=== PATIENT | male | born 1985 | race Caucasian/White ===

== ENCOUNTER 2019-03-25 18:14 | Emergency (ER) | payer BC ==
[2019-03-25] MEDS ORDERED: Albuterol/Ipratropium 3.0-0.5 MG/3 ML Neb Soln NEB ONE (19:01)
[2019-03-25] MEDS ORDERED: methylPREDNISolone Sodium Succinate 125 MG/2 ML SDV IM ONE (19:01)
--- NOTE | 2019-03-25 19:03 | EDM.PDOC ---
<Phyllis Kulkarni - Last Filed: 03/25/19 23:14> ED HPI GENERAL MEDICAL PROBLEM - General Chief Complaint: General Stated Complaint: PT HAS FLU SYMPTOMS Time Seen by Provider: 03/25/19 18:24 Source of Information: Reports: Patient History Limitations: Reports: No Limitations - History of Present Illness INITIAL COMMENTS - FREE TEXT/NARRATIVE: HISTORY AND PHYSICAL: History of present illness: Patient is a 33-year-old male presents to the ED today for concern of cough and chills 4 days. Patient states he does not have any health history and thought that the cough go away. Patient states that he started feeling like he had chills but states he has not had a fever. Patient states he has been taking over -the-counter cold medication for his symptoms. Patient denies any other symptoms or concerns at this time. Patient states he does not smoke or use any substances. Patient denies fever, chest pain, shortness of breath. Denies headache, neck stiff ness, change in vision, syncope, or near syncope. Denies nausea, vomiting , abdominal pain, diarrhea, constipation, or dysuria. Has not noted any blood in urine or stool. Patient has been eating and drinking appropriately. Review of systems: As per history of present illness and below otherwise all systems reviewed and negative. Past medical history: As per history of present illness and as reviewed below otherwise noncontributory. Surgical history: As per history of present illness and as reviewed below otherwise noncontributory. Social history: See social history for further information Family history: As per history of present illness and as reviewed below otherwise noncontributory. Physical exam: General: Patient is alert, oriented, and in no acute distress. Patient sitting comfortably on exam table. HEENT: Atraumatic, normocephalic, pupils equal and reactive bilaterally, negative for conjunctival pallor or scleral icterus, mucous membranes moist, TMs normal bilaterally, throat clear, neck supple, nontender, trachea midline. No drooling or trismus noted. No meningeal signs. No hot potato voice noted. Lungs: Clear to auscultation, breath sounds equal bilaterally, chest nontender. Dry tight cough on exam. Heart: S1S2, regular rate and rhythm without overt murmur Abdomen: Soft, nondistended, nontender. Negative for masses or hepatosplenomegaly. Negative for costovertebral tenderness. Pelvis: Stable nontender. Genitourinary: Deferred. Rectal: Deferred. Skin: Intact, warm, dry. No lesions or rashes noted. Extremities: Atraumatic, negative for cords or calf pain. Neurovascular unremarkable. Neuro: Awake, alert, oriented. Cranial nerves II through XII unremarkable. Cerebellum unremarkable. Motor and sensory unremarkable throughout. Exam nonfocal. Notes: Dr. Obando verbally involved in patient care. Did offer patient admission for observation but patient declines at this time requesting outpatient management. Discussed the importance for follow-up with a primary care provider. Voices understanding and is agreeable to plan of care. Denies any further questions or concerns at this time. Diagnostics: Influenza, strep, chest x-ray, CBC, CMP, UA, lactate, blood cultures 2, CT chest Therapeutics: Solu-Medrol, DuoNeb Prescription: albuterol inhaler, Levaquin Impression: Community acquired pneumonia Plan: 1. Take medication as prescribed. You can alternate ibuprofen and Tylenol as checked her for pain and discomfort. 2. Follow-up with a primary care provider as discussed. Return to the ED as needed and as discussed. Definitive disposition and diagnosis as appropriate pending reevaluation and review of above. throat Pain Score (Numeric/FACES): 4 - Related Data Allergies Allergy/AdvReac Type Severity Reaction Status Date / Time No Known Allergies Allergy Verified 03/25/19 18:28 Home Meds: Home Meds . [No Known Home Meds] 03/25/19 [History] Past Medical History HEENT History: Reports: None Cardiovascular History: Reports: None Respiratory History: Reports: None Gastrointestinal History: Reports: None Genitourinary History: Reports: None Musculoskeletal History: Reports: None Neurological History: Reports: None Psychiatric History: Reports: None Endocrine/Metabolic History: Reports: None Hematologic History: Reports: None Immunologic History: Reports: None Oncologic (Cancer) History: Reports: None Dermatologic History: Reports: None - Past Surgical History Head Surgeries/Procedures: Reports: None HEENT Surgical History: Reports: None Cardiovascular Surgical History: Reports: None Respiratory Surgical History: Reports: None GI Surgical History: Reports: None Male Surgical History: Reports: None Endocrine Surgical History: Reports: None Neurological Surgical History: Reports: None Musculoskeletal Surgical History: Reports: None Oncologic Surgical History: Reports: None Dermatological Surgical History: Reports: None Social & Family History - Family History Family Medical History: Noncontributory - Tobacco Use Smoking Status *Q: Never Smoker Second Hand Smoke Exposure: No - Caffeine Use Caffeine Use: Reports: Coffee - Recreational Drug Use Recreational Drug Use: No ED ROS GENERAL - Review of Systems Review Of Systems: ROS reveals no pertinent complaints other than HPI. ED EXAM, GENERAL - Physical Exam Exam: See Below (See dictation) Course - Vital Signs Last Recorded V/S: Last Vital Signs Temp 36.7 C 03/25/19 21:06 Pulse 97 03/25/19 23:30 Resp 20 03/25/19 23:30 BP 119/76 03/25/19 23:30 Pulse Ox 96 03/25/19 23:30 - Orders/Labs/Meds Orders: Active Orders 24 hr Category Date Time Status RT Aerosol Therapy [RC] ASDIRECTED Care 03/25/19 19:01 Active CULTURE BLOOD [BC] Stat Lab 03/25/19 21:00 Received CULTURE BLOOD [BC] Stat Lab 03/25/19 21:12 Received CULTURE STREP A CONFIRMATION [RM] Stat Lab 03/25/19 18:24 Results STREP SCRN A RAPID W CULT CONF [RM] Stat Lab 03/25/19 18:24 Results Blood Culture x2 Reflex Set [OM.PC] Stat Oth 03/25/19 20:49 Ordered Labs: Laboratory Tests 03/25/19 03/25/19 03/25/19 Range/Units 21:00 21:00 21:00 WBC 6.68 (4.0-11.0) K/uL RBC 5.24 (4.50-5.90) M/uL Hgb 15.4 (13.0-17.0) g/dL Hct 44.0 (38.0-50.0) % MCV 84.0 (80.0-98.0) fL MCH 29.4 (27.0-32.0) pg MCHC 35.0 (31.0-37.0) g/dL RDW Std Deviation 38.5 (28.0-62.0) fl RDW Coeff of Laura 13 (11.0-15.0) % Plt Count 206 (150-400) K/uL MPV 9.80 (7.40-12.00) fL Neut % (Auto) 80.2 H (48.0-80.0) % Lymph % (Auto) 9.4 L (16.0-40.0) % [place] % (Auto) 9.7 (0.0-15.0) % Eos % (Auto) 0.4 (0.0-7.0) % Baso % (Auto) 0.3 (0.0-1.5) % Neut # (Auto) 5.4 (1.4-5.7) K/uL Lymph # (Auto) 0.6 (0.6-2.4) K/uL [place] # (Auto) 0.7 (0.0-0.8) K/uL Eos # (Auto) 0.0 (0.0-0.7) K/uL Baso # (Auto) 0.0 (0.0-0.1) K/uL Nucleated RBC % 0.0 /100WBC Nucleated RBCs # 0 K/uL Lactate 1.1 (0.20-2.00) mmol/L Sodium 141 (136-148) mmol/L Potassium 4.1 (3.5-5.1) mmol/L Chloride 103 (98-107) mmol/L Carbon Dioxide 24.7 (21.0-32.0) mmol/L BUN 15 (7.0-18.0) mg/dL Creatinine 1.1 (0.8-1.3) mg/dL Est Cr Clr Drug Dosing 103.63 mL/min Estimated GFR (MDRD) > 60.0 ml/min Glucose 103 (74-106) mg/dL Calcium 8.6 (8.5-10.1) mg/dL Total Bilirubin 0.8 (0.2-1.0) mg/dL AST 26 (15-37) IU/L ALT 41 (14-63) IU/L Alkaline Phosphatase 65 (46-116) U/L Total Protein 8.2 (6.4-8.2) g/dL Albumin 3.9 (3.4-5.0) g/dL Globulin 4.3 H (2.6-4.0) g/dL Albumin/Globulin Ratio 0.9 (0.9-1.6) Meds: Medications Discontinued Medications Generic Name Dose Route Start Last Admin Trade Name Freq PRN Reason Stop Dose Admin Albuterol/Ipratropium 3 ml 03/25/19 19:01 03/25/19 19:09 Duoneb 3.0-0.5 Mg/3 Ml NEB 03/25/19 19:02 3 ml ONETIME ONE Administration Ceftriaxone Sodium/Dextrose 1 50 mls @ 100 mls/hr 03/25/19 20:51 03/25/19 21: 02 gm/ Premix IV 03/25/19 21:20 100 mls/hr ONETIME ONE Administration Sodium Chloride 1,000 mls @ 999 mls/hr 03/25/19 20:51 03/25/19 21:42 Normal Saline IV 03/25/19 21:51 999 mls/hr STAT ONE Infusion Iopamidol 100 ml 03/25/19 22:32 03/25/19 22:45 Isovue-370 (76%) IVPUSH 03/25/19 22:33 100 ml ONETIME ONE Administration Methylprednisolone Sodium Succinate 125 mg 03/25/19 19:01 03/25/19 19:20 Solu-Medrol IM 03/25/19 19:02 125 mg ONETIME ONE Administration Departure - Departure Time of Disposition: 23:15 Disposition: Home, Self-Care 01 Clinical Impression: Community acquired pneumonia Qualifiers: Laterality: left Lung location: unspecified part of lung Qualified Code(s): J18.9 - Pneumonia, unspecified organism - Discharge Information Instructions: Community-Acquired Pneumonia, Adult, [id number] Referrals: PCP,None [Primary Care Provider] - Forms: ED Department Discharge Additional Instructions: The following information is given to patients seen in the emergency department who are being discharged to home. This information is to outline your options for follow-up care. We provide all patients seen in our emergency department with a follow-up referral. The need for follow-up, as well as the timing and circumstances, are variable depending upon the specifics of your emergency department visit. If you don't have a primary care physician on staff, we will provide you with a referral. We always advise you to contact your personal physician following an emergency department visit to inform them of the circumstance of the visit and for follow-up with them and/or the need for any referrals to a consulting specialist. The emergency department will also refer you to a specialist when appropriate. This referral assures that you have the opportunity for follow-up care with a specialist. All of these measure are taken in an effort to provide you with optimal care, which includes your follow-up. Under all circumstances we always encourage you to contact your private physician who remains a resource for coordinating your care. When calling for follow-up care, please make the office aware that this follow-up is from your recent emergency room visit. If for any reason you are refused follow-up, please contact the [facility] Emergency Department at and asked to speak to the emergency department charge nurse. [facility] [address] [place] [address] [id number] [address] 1. Take medication as prescribed. You can alternate ibuprofen and Tylenol as directed for pain and discomfort. 2. Follow-up with a primary care provider as discussed. Return to the ED as needed and as discussed. <Sherine Obando - Last Filed: 03/26/19 04:22> ED HPI GENERAL MEDICAL PROBLEM - History of Present Illness INITIAL COMMENTS - FREE TEXT/NARRATIVE: Please addend the impression above to say multi lobar pneumonia
--- NOTE | 2019-03-25 20:38 | CR ---
INDICATION: Cough x1 week TECHNIQUE: Chest 2 views. COMPARISON: None FINDINGS: Cardiovascular and mediastinum: Heart size and vasculature are normal in caliber and appearance. Mediastinum is within normal limits. Lungs and pleural spaces: 5.0 centimeter x 3.0 centimeter oval masslike opacity left upper lobe lingular segment. No sign of pleural effusion. No pneumothorax. Bones and soft tissues: No significant findings. IMPRESSION: 5.0 centimeter x 3.0 centimeter oval masslike opacity left upper lobe lingular segment. Although the findings may be secondary to pneumonia especially given the patient`s symptoms with this should be followed to full resolution to exclude mass. Dictated by Richard García MD @ 03/25/2019 8:36:20 PM Dictated by: Richard García MD @ 03/25/2019 20:36:28 (Electronically Signed)
[2019-03-25] MEDS ORDERED: cefTRIAXone 1 GM in Premix Bag 1 BAG IV ONE (20:51)
[2019-03-25] MEDS ORDERED: Sodium Chloride 0.9% 1,000 ML IV ONE (20:51)
[2019-03-25 21:41] LABS: CHLORIDE,CL 103 mmol/L (98-107); SODIUM,NA 141 mmol/L (136-148)
[2019-03-25] MEDS ORDERED: Iopamidol 755 Mg/ML 100 ML Bottle IVPUSH ONE (22:32)
--- NOTE | 2019-03-25 23:05 | CT ---
INDICATION: Chest pain and shortness of breath TECHNIQUE: CT chest PE was acquired with 100 cc Isovue 370 intravenous contrast. COMPARISON: Chest x-ray 03/25/2019 FINDINGS: Heart and vasculature: Inadequate opacification of the pulmonary artery. No proximal emboli seen. Thoracic aorta is normal in caliber. No pericardial effusion. Lungs and pleural: No pleural effusion or pneumothorax. Mixture ground-glass opacities and consolidation within the bilateral lower lobes, lingula and left upper lobe. Lymph nodes/mediastinum: No mediastinal, hilar, or axillary adenopathy. Thyroid gland is normal. Chest wall: No masses. Upper abdomen: Normal. Bones: Unremarkable for age. IMPRESSION: 1. Nondiagnostic evaluation for pulmonary embolus due to inadequate opacification of the pulmonary artery. No proximal emboli seen. 2. Multilobar ground-glass opacities and consolidation, appearance suggests an infectious bronchopneumonia. As this is visible radiographically, recommend follow-up x-rays in 8 weeks to document resolution. Please note that all CT scans at this facility use dose modulation, iterative reconstruction, and/or weight-based dosing when appropriate to reduce radiation dose to as low as reasonably achievable. Dictated by Michael Virk MD @ Mar 25 2019 10:57PM Signed by Dr. Michael Virk @ Mar 25 2019 11:03PM
== END 2019-03-25 23:35 | disposition home or self-care (01) ==
LOC: MW.ED 18:14
DX: J18.9 Pneumonia, unspecified organism (principal)
CPT/HCPCS: 36415; 71046; 71260; 80053; 83605; 85025; 87040; 87081; 87804; 87880; 94640; 96361; 96365; 96372; 99284; A4217; J0696; J2930; J7040; Q9967; J7620-GY